=== PATIENT | male | born 1955 | race Caucasian/White ===

== ENCOUNTER 2024-09-18 15:02 | Emergency (ER) | payer MEDICARE, OTHER ==
[~2024-09-18] VITALS: Ht 175.3 cm; Wt 69.0 kg
[2024-09-18 15:05] VITALS: O2SAT 98
[2024-09-18 15:19] VITALS: BP 117/70; PULSE 75; RESP 16; TEMP 37.00296; O2SAT 98
[2024-09-18 16:31] LABS: BASOPHILS % 0.4 % (0.0-2.0); EOSINOPHILS % 1.4 % (0.0-5.0); HEMATOCRIT. 29.9 % (42.0-52.0); HEMOGLOBIN. 9.9 g/dL (14.0-18.0); LYMPHOCYTES % 9.5 % (20.0-50.0); MEAN CORPUSCULAR HEMOGLOBIN 29.1 pg (28.0-32.0); MEAN CORPUSCULAR HGB CONC 33.3 g/dL (31.0-37.0); MEAN CORPUSCULAR VOLUME 87.5 fL (80.0-94.0); MEAN PLATELET VOLUME 7.4 fl (7.4-10.4); NEUTROPHILS % 80.7 % (40.0-76.0); PLATELET 556 x1000/uL (130-400); RED BLOOD CELL COUNT 3.41 mill/uL (4.7-6.1); WHITE BLOOD COUNT 12.5 x1000/uL (4.5-11.0)
[2024-09-18 16:47] LABS: CHLORIDE 104 mEq/L (98-107); POTASSIUM 4.7 mEq/L (3.5-5.1); SODIUM 138 mEq/L (136-145)
[2024-09-18 16:48] LABS: CARBON DIOXIDE 29 mEq/L (21-32)
[2024-09-18 16:49] LABS: CALCIUM 9.8 mg/dL (8.7-10.4)
[2024-09-18 16:54] LABS: GLUCOSE 133 mg/dL (70-105); UREA NITROGEN BLOOD 14 mg/dL (9-23)
[2024-09-18] MEDS ORDERED: KETOROLAC 30MG/ML VIAL IM ONE (18:15)
[2024-09-18] MEDS ORDERED: SODIUM CHLORIDE 0.9% 1,000 ML IV ONE (19:15)
[2024-09-18] MEDS ORDERED: MORPHINE SULFATE 2 MG/ML INJ (NOT FOR IM USE) IV NR (19:15)
== END 2024-09-19 00:23 | disposition left against medical advice (07) ==
LOC: ER 15:02
DX: K56.1 Intussusception (principal); I10 Essential (primary) hypertension
CPT/HCPCS: 36415; 74176; 80048; 85025; 99284